=== PATIENT | male | born 1960 | race American Indian/Alaskan Native ===

== ENCOUNTER 2020-02-03 04:35 | Emergency (ER) | payer MEDICARE, MEDICAID ==
[2020-02-03 04:48] VITALS: BP 148/87; PULSE 77
--- NOTE | 2020-02-03 05:16 | EDM.PDOC ---
ED HPI GENERAL MEDICAL PROBLEM - General Chief Complaint: Lower Extremity Injury/Pain Stated Complaint: LEFT HIP PAIN Time Seen by Provider: 02/03/20 04:45 Source of Information: Reports: Patient, Retirement Records History Limitations: Reports: Altered Mental Status - History of Present Illness INITIAL COMMENTS - FREE TEXT/NARRATIVE: Pt presents with left hip pain Pt per NH has fallen 5 days in a row and [facility] sent for hip evaluation Onset: Gradual Duration: Day(s): Location: Reports: Lower Extremity, Left Quality: Reports: Ache - Related Data Allergies Allergy/AdvReac Type Severity Reaction Status Date / Time propoxyphene Allergy Burning Verified 02/03/20 04:46 [From Darvocet-N] simvastatin Allergy Other Verified 02/03/20 04:46 Home Meds: Home Meds Albuterol [Proventil HFA] 6.7 gm INH ASDIRECTED 10/21/16 [History] Albuterol/Ipratropium [DuoNeb 3.0-0.5 MG/3 ML] 3 ml NEB ASDIRECTED 10/21/16 [History] Carisoprodol [Soma] 350 mg PO TID 10/21/16 [History] Fluticasone Propionate 1 spray NS DAILY 10/21/16 [History] LORazepam [Ativan] 1 mg PO TID PRN 10/21/16 [History] Multivitamin [One Daily] 1 each PO DAILY 10/21/16 [History] Pantoprazole Sodium 40 mg PO BID 10/21/16 [History] Topiramate 100 mg PO DAILY 10/21/16 [History] traMADol HCl [Tramadol HCl] 100 mg PO Q6H PRN 10/21/16 [History] Cholecalciferol (Vitamin D3) [Vitamin D3] 1,000 unit PO DAILY 06/11/18 [History] Krill Oil 500 mg PO DAILY 06/11/18 [History] Milk Thistle Seed Extract [Milk Thistle] 200 mg PO DAILY 06/11/18 [History] Pregabalin [Lyrica] 150 mg PO BID 06/11/18 [History] dilTIAZem HCL [Diltiazem 24Hr ER] 180 mg PO DAILY 06/11/18 [History] Vitamin E 400 unit PO DAILY 11/08/18 [History] Diclofenac Sodium [Voltaren 1% Gel] 1 applic TOP QID PRN 11/10/18 [History] lisinopriL [Lisinopril] 5 mg PO DAILY #30 tablet 11/13/18 [Rx] Bumetanide 2 mg PO DAILY 05/11/19 [History] Butalb/Acetaminophen/Caffeine [Unfeyx-Zxpdnhch-Djqy 50-325-40] 1 tab PO QID PRN 05/11/19 [History] Rivaroxaban [Xarelto] 20 mg PO WITHDINNER 05/11/19 [History] Metoprolol Succinate 200 mg PO DAILY 30 Days #60 tab.er.24h 05/12/19 [Rx] Past Medical History HEENT History: Reports: Cataract, Hard of Hearing, Other (See Below) Cardiovascular History: Reports: Afib, High Cholesterol, Hypertension Respiratory History: Reports: Asthma, COPD, Pneumonia, Recurrent, Other (See Below) Other Respiratory History: emphysema Gastrointestinal History: Reports: Chronic Diarrhea, GERD Genitourinary History: Reports: None Musculoskeletal History: Reports: Back Pain, Chronic, Neck Pain, Chronic Neurological History: Reports: Concussion, Migraines Other Neuro History: Numerous EEG's Psychiatric History: Reports: Bipolar, Depression, Emotional Problems, Psych Hospitalization(s), Psychosis, Schizophrenia, Suicide Attempt, Suicidal Ideation Endocrine/Metabolic History: Reports: Other (See Below) Other Endocrine/Metabolic History: was pre diabetic Hematologic History: Reports: Hemochromatosis Other Hematologic History: Poorly Controlled - Infectious Disease History Infectious Disease History: Reports: None Other Infectious Disease History: unable to verify - Past Surgical History HEENT Surgical History: Reports: Cataract Surgery Other HEENT Surgeries/Procedures: august 2012- cataract right eye. september 2012- left eye surgery GI Surgical History: Reports: Cholecystectomy, Colonoscopy, EGD Other GI Surgeries/Procedures: Colonoscopy - 2012. EGD - 2012 Neurological Surgical History: Reports: None Social & Family History - Family History Family Medical History: Noncontributory - Caffeine Use Caffeine Use: Reports: None Caffeine Use Comment: unable to verify Review of Systems - Review of Systems Review Of Systems: See Below Musculoskeletal: Reports: Joint Pain ED EXAM, GENERAL - Physical Exam Exam: See Below Exam Limited By: Altered Mental Status General Appearance: No Apparent Distress Extremities: Other (Left hip mildly tender No rotation No shortening) Course - Vital Signs Last Recorded V/S: Last Vital Signs Temp 98.2 F 02/03/20 04:46 Pulse 77 02/03/20 04:46 Resp 14 02/03/20 04:46 BP 148/87 H 02/03/20 04:46 Pulse Ox 99 02/03/20 04:46 - Orders/Labs/Meds Orders: Active Orders 24 hr Category Date Time Status Hip Min 1V Lt [CR] Stat Exams 02/03/20 04:45 Ordered - Re-Assessments/Exams Free Text/Narrative Re-Assessment/Exam: 02/03/20 05:14 Xray: No obvious fracture Departure - Departure Time of Disposition: 05:15 Disposition: DC/Tfer to SNF 03 Clinical Impression: Left hip pain - Discharge Information *PRESCRIPTION DRUG MONITORING PROGRAM REVIEWED*: Not Applicable *COPY OF PRESCRIPTION DRUG MONITORING REPORT IN PATIENT COLLIN: Not Applicable Instructions: Hip Pain Additional Instructions: Follow up in clinic Sepsis Event Note (ED) - Evaluation Sepsis Screening Result: No Definite Risk - Focused Exam Vital Signs: Vital Signs Temp Pulse Resp BP Pulse Ox 02/03/20 04:46 98.2 F 77 14 148/87 H 99 - My Orders Last 24 Hours: My Active Orders 02/03/20 04:45 Hip Min 1V Lt [CR] Stat - Assessment/Plan Last 24 Hours: My Active Orders 02/03/20 04:45 Hip Min 1V Lt [CR] Stat
== END 2020-02-03 08:25 ==
LOC: LL.ED 04:35
DX: M25.552 Pain in left hip (principal); R41.82 Altered mental status, unspecified; I10 Essential (primary) hypertension; E78.00 Pure hypercholesterolemia, unspecified; I48.91 Unspecified atrial fibrillation; J44.9 Chronic obstructive pulmonary disease, unspecified; K21.9 Gastro-esophageal reflux disease without esophagitis; F31.9 Bipolar disorder, unspecified; Z88.5 Allergy status to narcotic agent; Z88.8 Allergy status to other drugs, medicaments and biological substances; Z90.49 Acquired absence of other specified parts of digestive tract; Z79.899 Other long term (current) drug therapy
CPT/HCPCS: 99282; 99283-25

== ENCOUNTER 2020-02-06 09:10 | Observation (INO) | payer MEDICARE, MEDICAID ==
[2020-02-06] MEDS ORDERED: Famotidine 20 MG/2 ML SDV IVPUSH ONE (09:19)
--- NOTE | 2020-02-06 09:19 | EDM.PDOC ---
ED HPI GENERAL MEDICAL PROBLEM - General Chief Complaint: Behavioral/Psych Stated Complaint: behavioral issue Time Seen by Provider: 02/06/20 09:18 Source of Information: Reports: Patient, Halfway Records, Old Records ([facility] EMR. No paper hospital chart available.) History Limitations: Reports: Altered Mental Status - History of Present Illness INITIAL COMMENTS - FREE TEXT/NARRATIVE: The patient was brought to the emergency room via ambulance with full stack python developer accompaniment with saline lock placed but no other treatment prior to arrival. He is a very poor historian secondary to his current psychiatric status. The patient complained of some nonspecific left chest pain earlier this morning with one sublingual nitroglycerin tablet given at the halfway prior to patient's transfer. Chest pain symptoms have completely resolved at time of arrival to this facility. The patient apparently complained of multiple other problems and wanted to be seen in the emergency room, however specifics unclear at this time secondary to his mental status. No apparent recent history of fever, cough, abdominal complaints, UTI symptoms, etc.. No current pain at this time. His mental and neurological status is apparently stable by limited history. Onset: Today, Unknown/Unsure Onset Date: 02/06/20 Onset Time: 08:00 Duration: Resolved Prior to Arrival Location: Reports: Chest Quality: Reports: Same as Previous Episode Severity: Moderate Improves with: Reports: Medication Worsens with: Reports: None Context: Reports: Other (As above). Denies: Sick Contact, Trauma Associated Symptoms: Reports: Confusion (Stable by history), Chest Pain. Denies: Cough, Fever/Chills, Nausea/Vomiting, Shortness of Breath Treatments MANAGER EXPORT: Reports: IV/IO, Nitroglycerin - Related Data Allergies Allergy/AdvReac Type Severity Reaction Status Date / Time propoxyphene Allergy Burning Verified 02/03/20 04:46 [From Darvocet-N] simvastatin Allergy Other Verified 02/03/20 04:46 Home Meds: Home Meds LORazepam [Ativan] 0.5 mg PO BID@10/21/16 [History] Pantoprazole Sodium 40 mg PO DAILY 10/21/16 [History] Acetaminophen [Tylenol] 325 mg PO Q4HR PRN 02/06/20 [History] Albuterol Sulfate 2.5 mg IH Q4HR PRN 02/06/20 [History] Albuterol Sulfate [Albuterol Sulfate Hfa] 2 puff INH Q4HR PRN 02/06/20 [History] Albuterol/Ipratropium [Combivent Respimat] 1 puff IH QID 02/06/20 [History] Aspirin 325 mg PO DAILY 02/06/20 [History] Celecoxib 200 mg PO DAILY 02/06/20 [History] Fluticasone/Vilanterol [Breo Ellipta 200-25 MCG Inhalation Kit] 1 each IH DAILY 02/06/20 [History] Folic Acid 1 mg PO DAILY 02/06/20 [History] Hydrocortisone [Hydrocortisone 1% Crm] 1 applic TOP QID PRN 02/06/20 [History] Metoprolol Tartrate [Lopressor] 50 mg PO BID 02/06/20 [History] Mirtazapine [Remeron] 7.5 mg PO BEDTIME 02/06/20 [History] Mometasone Furoate [Asmanex Hfa] 1 puff IH BEDTIME 02/06/20 [History] Multivit,Calc,Mins/Iron/Folic [Thera-M] 1 each PO DAILY 02/06/20 [History] Nicotine [Nicotine Patch] 21 mg TD BEDTIME 02/06/20 [History] Rosuvastatin Calcium [Crestor] 40 mg PO DAILY 02/06/20 [History] Sennosides/Docusate Sodium [Senokot-S Tablet] 1 each PO BID 02/06/20 [History] Tiotropium [Spiriva] 18 mcg INH DAILY 02/06/20 [History] Warfarin [Coumadin] 2.5 mg PO MOWEFR@1400 02/06/20 [History] Warfarin [Coumadin] 5 mg PO SUTHSA@1400 02/06/20 [History] dilTIAZem HCL [Cardizem Cd] 240 mg PO DAILY 02/06/20 [History] diphenhydrAMINE HCL [Benadryl Allergy] 25 mg PO Q6HR PRN 02/06/20 [History] levETIRAcetam [Keppra] 250 mg PO Q12HR 02/06/20 [History] lisinopriL [Lisinopril] 20 mg PO DAILY 02/06/20 [History] ziprasidone HCL [Geodon] 40 mg PO DAILY 02/06/20 [History] Past Medical History HEENT History: Reports: Allergic Rhinitis, Cataract, Hard of Hearing, Other (See Below) Cardiovascular History: Reports: Afib, Arrhythmia, Cardiomyopathy, Heart Failure, Heart Murmur, High Cholesterol, Hypertension, Pulmonary Hypertension, Other (See Below). Denies: Blood Clots/VTE/DVT, CAD, MO Other Cardiovascular History: History of mild diffuse valvular disease by echocardiogram however not problematic. Severe left atrial enlargement with moderate right atrial enlargement with additional mild right ventricular enlargement consistent with pulmonary hypertension. Chronic atrial fibrillation with current anticoagulation therapy and previous history of rapid ventricular response and PACs. Left superficial femoral vein thrombosis at the gastrocnemius region on 11/24/2018 with no history of DVTs. Respiratory History: Reports: Asthma, Bronchitis, Recurrent, COPD, Pneumonia, Recurrent, Other (See Below) Gastrointestinal History: Reports: Cholelithiasis, Chronic Diarrhea, Gastritis, GERD, GI Bleed, PUD, Other (See Below) Other Gastrointestinal History: Upper GI bleed on 05/31/2018. History of nodular liver and probable hepatic hypertension by CT scan on 06/11/18. Genitourinary History: Reports: BPH, Hydronephrosis, Renal Calculus, Other (See Below) Other Genitourinary History: Left-sided urolithiasis with hydronephrosis on 06/11/2018. Musculoskeletal History: Reports: Arthritis, Back Pain, Chronic, Fracture, Neck Pain, Chronic, Osteoarthritis, Other (See Below) Other Musculoskeletal History: Chronic pain disorder with narcotic use. Left- sided rib fractures by x-rays. 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 Psychiatric History: Reports: Addiction, Bipolar, Depression, Emotional Problems, Psych Hospitalization(s), Psychosis, Schizophrenia, Suicide Attempt, Suicidal Ideation, Other (See Below) Other Psychiatric History: History of alcohol abuse, marijuana and methamphetamine abuse by medical records with additional previous DWIs and hospitalizations required for treatment of his substance abuse, anxiety depression disorder, etc.. Paranoid schizophrenia with additional bipolar disorder. Endocrine/Metabolic History: Reports: Diabetes, Type II, Other (See Below) Other Endocrine/Metabolic History: Pre diabetic? Hematologic History: Reports: Hemochromatosis, Other (See Below) Other Hematologic History: Macrocytosis. Hemochromatosispoorly Controlled Dermatologic History: Reports: Venous Stasis Dermatitis - Infectious Disease History Infectious Disease History: Reports: Chicken Pox, Measles Other Infectious Disease History: unable to verify - Past Surgical History HEENT Surgical History: Reports: Cataract Surgery, Oral Surgery Other HEENT Surgeries/Procedures: August 2012- cataract right eye; September 2012- left eye surgery. Teeth extractions. GI Surgical History: Reports: Cholecystectomy, Colonoscopy, EGD Other GI Surgeries/Procedures: Colonoscopy - 2012. EGD - 2012 Neurological Surgical History: Reports: None - Past Imaging History Past Imaging History: Reports: Cardiac Echo (Last echocardiogram on 05/10/2019 with ejection fraction of 40 to 45% at that time and otherwise findings as above. Previous echocardiogram on 11/08/2018.), CAT Scan (CT scan of the abdomen pelvis on 06/11/2018. CT scan of the head on 12/21/2019 and 05/10/2019.), EEG (Multiple previous per medical records), Venous Doppler (Of the legs bilaterally on 11/24/2018 with findings as above. Right leg venous Doppler study on 08/07/2018.) Social & Family History - Family History Family Medical History: Unobtainable - Caffeine Use Caffeine Use: Reports: None Caffeine Use Comment: unable to verify - Alcohol Use Alcohol Use History: Yes Number of Drinks Per Day Comment: Alcohol abuse history as above. - Recreational Drug Use Recreational Drug Use: Yes Drug Use in Last 12 Months: Yes Recreational Drug Type: Reports: Amphetamines (Speed), Marijuana/Hashish, Methamphetamine - Living Situation & Occupation Living situation: Reports: Extended Care Facility ([facility]) ED ROS GENERAL - Review of Systems Review Of Systems: Comprehensive ROS is negative, except as noted in HPI. ED EXAM, GENERAL - Physical Exam Exam: See Below Exam Limited By: No Limitations General Appearance: Alert, WD/WN, No Apparent Distress Eye Exam: Bilateral Eye: EOMI, Normal Fundi, Normal Inspection (No nystagmus), PERRL Ears: Normal Canal, Normal TMs, Hearing Loss (Mild bilateral) Nose: Normal Inspection, Normal Mucosa, No Blood Throat/Mouth: Normal Inspection, Normal Lips, Normal Teeth, Normal Gums, Normal Oropharynx, Normal Voice, No Airway Compromise. No: Dysphagia, Perioral Cyanosis Head: Atraumatic, Normocephalic. No: Facial Swelling, Facial Tenderness, Sinus Tenderness Neck: Normal Inspection, Supple, Non-Tender, Full Range of Motion. No: Carotid Bruit, Lymphadenopathy (L), Thyromegaly Respiratory/Chest: No Respiratory Distress, Normal Breath Sounds, No Accessory Muscle Use, Chest Non-Tender, Rhonchi (Occasional mild bilateral). No: Rales, Wheezing, Pleural Rub, Retractions Cardiovascular: Normal Peripheral Pulses, No Gallop, No JVD, No Murmur, No Rub, Irregularly Irregular (Regular rate). No: No Edema (Dependent edema as below), Gallop/S3, Gallop/S4 Peripheral Pulses: 2+: Radial (L), Radial (R), Dorsalis Pedis (L), Dorsalis Pedis (R) GI/Abdominal: Normal Bowel Sounds, Soft, Non-Tender, No Organomegaly, No Distention, No Abnormal Bruit, No Mass, Pelvis Stable, Other (Obese). No: Guarding (Male) Exam: Deferred Rectal (Males) Exam: Deferred Back Exam: Normal Inspection, Full Range of Motion. No: CVA Tenderness (L), CVA Tenderness (R), Muscle Spasm Extremities: Non-Tender, Normal Capillary Refill, Pedal Edema (Bilateral trace+1 pedal/pretibial edema), Limited Range of Motion (Secondary to hemiparesis as below). No: Poonam's Sign Neurological: Alert, Normal Reflexes (Negative Babinski's), Confused (Mild), Other (Stable by history of left hemiparesis) Psychiatric: Anxious (Moderate), Depressed Mood (Moderate), Other (Psychosis?) Skin Exam: Ecchymosis (Multiple on the extremities and abdomen), Other (Venous versus dermatitis of the lower extremities). No: Diaphoretic, Petechiae, Wound/Incision Lymphatic: No Adenopathy EKG INTERPRETATION EKG Date: 02/06/20 Time: 09:19 Rhythm: A-Fib Rate (Beats/Min): 75 Palm: Normal (Left cardiac axis which is changed from previous neutral cardiac axis.) P-Wave: Variable QRS: Wide (0.10 seconds representing repolarization changes) ST-T: Normal QT: Normal IN/PQ Interval: Variable. Poor R wave progression in the anterior leads with resolution of previous pulmonary hypertension by EKG Comparison: Change From Previous EKG (As above since 12/21/2019) EKG Interpretation Comments: 1. No acute ischemic changes 2. Atrial fibrillation 3. Repolarization changes Course - Vital Signs Last Recorded V/S: Last Vital Signs Temp 36.2 C 02/06/20 09:30 Pulse 70 02/06/20 10:50 Resp 18 02/06/20 10:50 BP 126/85 02/06/20 10:50 Pulse Ox 99 02/06/20 10:50 Vital Signs - 24 hr 02/06/20 02/06/20 02/06/20 09:10 09:30 09:43 Temperature [ 36.2 C Temporal] Pulse, 80 73 76 Peripheral [ Pulse Oximetry] Respiratory 18 17 20 Rate Blood Pressure 146/85 H 146/85 H 129/99 H [Left Upper Arm ] O2 Sat by Pulse 99 99 99 Oximetry 02/06/20 02/06/20 10:00 10:50 Temperature [ Temporal] Pulse, 81 70 Peripheral [ Pulse Oximetry] Respiratory 17 18 Rate Blood Pressure 128/97 H 126/85 [Left Upper Arm ] O2 Sat by Pulse 99 99 Oximetry - Orders/Labs/Meds Orders: Active Orders 24 hr Category Date Time Status Cardiac Monitoring [RC] . DIRECTED Care 02/06/20 09:19 Active EKG Documentation Completion [RC] ASDIRECTED Care 02/06/20 09:19 Active Oxygen Therapy, ED [RC] PRN Care 02/06/20 09:19 Active Peripheral IV Care [RC] . DIRECTED Care 02/06/20 09:19 Active Pulse Oximetry [RC] CONTINUOUS Care 02/06/20 09:19 Active Up With Assistance [RC] PFP Care 02/06/20 09:19 Active Vital Signs [RC] PFP Care 02/06/20 09:19 Active Nothing per Oral Now Diet [DIET] Diet 02/06/20 Breakfast Active Chest 1V Frontal [CR] Stat Exams 02/06/20 09:19 Taken Sodium Chloride 0.9% [Saline Flush] Med 02/06/20 09:19 Active 10 ml FLUSH ASDIRECTED PRN Obtain Past Medical Record [OM.PC] Urgent Oth 02/06/20 09:19 Active Peripheral IV Insertion Adult [OM.PC] Stat Oth 02/06/20 09:19 Ordered Resuscitation Status Stat Resus Stat 02/06/20 09:19 Ordered Medication Orders Sodium Chloride (Saline Flush) 10 ml FLUSH ASDIRECTED PRN PRN Reason: Keep Vein Open Last Admin: 02/06/20 09:26 Dose: 10 ml Documented by: KADE Labs: Laboratory Tests 02/06/20 02/06/20 02/06/20 Range/Units 09:15 09:15 09:15 WBC 10.8 H (4.0-10.2) K/uL RBC 3.94 L (4.33-5.41) M/uL Hgb 12.7 L (13.1-16.8) g/dL Hct 37.8 L (39.0-49.0) % MCV 95.9 (84.0-98.0) fL MCH 32.2 (28.2-33.3) pg MCHC 33.6 (31.7-36.0) g/dL RDW 17.3 H (11.2-14.1) % Plt Count 241 (150-350) K/uL Neut % (Auto) 68.3 (45.0-80.0) % Lymph % (Auto) 15.0 (10.0-50.0) % [place] % (Auto) 11.0 (2.0-14.0) % Eos % (Auto) 5.2 H (0.0-5.0) % Baso % (Auto) 0.5 (0.0-2.0) % Neut # (Auto) 7.37 H (1.40-7.00) K/uL Lymph # (Auto) 1.62 (0.50-3.50) K/uL [place] # (Auto) 1.19 H (0.00-1.00) K/uL Eos # (Auto) 0.56 H (0.00-0.50) K/uL Baso # (Auto) 0.05 (0.00-0.20) K/uL PT 26.1 H (9.5-12.0) SEC INR 2.7 APTT 34.8 H (24.5-32.8) SEC D-Dimer, Quantitative 145 (0-400) ng/mL Sodium (136-145) mmol/L Potassium (3.5-5.1) mmol/L Chloride (98-107) mmol/L Carbon Dioxide (21.0-32.0) mmol/L BUN (7-18) mg/dL Creatinine (0.51-1.17) mg/dL Est Cr Clr Drug Dosing Estimated GFR (MDRD) mL/min Glucose (74-106) mg/dL Lactic Acid (0.4-2.0) mmol/L Uric Acid (2.6-7.2) mg/dL Calcium (8.5-10.1) mg/dL Magnesium (1.8-2.4) mg/dL Total Bilirubin (0.2-1.0) mg/dL AST (15-37) U/L ALT (12-78) U/L Alkaline Phosphatase (46-116) IU/L Creatine Kinase (26-308) U/L Creatine Kinase Index (0.0-2.5) % CK-MB (CK-2) (0.00-3.60) ng/mL Troponin I (0.000-0.056) ng/mL NT-Pro-B Natriuret Pep (0-125) pg/mL Total Protein (6.4-8.2) g/dL Albumin (3.4-5.0) g/dL TSH, Ultra Sensitive (0.358-3.740) mIU/mL 02/06/20 02/06/20 Range/Units 09:15 09:15 WBC (4.0-10.2) K/uL RBC (4.33-5.41) M/uL Hgb (13.1-16.8) g/dL Hct (39.0-49.0) % MCV (84.0-98.0) fL MCH (28.2-33.3) pg MCHC (31.7-36.0) g/dL RDW (11.2-14.1) % Plt Count (150-350) K/uL Neut % (Auto) (45.0-80.0) % Lymph % (Auto) (10.0-50.0) % [place] % (Auto) (2.0-14.0) % Eos % (Auto) (0.0-5.0) % Baso % (Auto) (0.0-2.0) % Neut # (Auto) (1.40-7.00) K/uL Lymph # (Auto) (0.50-3.50) K/uL [place] # (Auto) (0.00-1.00) K/uL Eos # (Auto) (0.00-0.50) K/uL Baso # (Auto) (0.00-0.20) K/uL PT (9.5-12.0) SEC INR APTT (24.5-32.8) SEC D-Dimer, Quantitative (0-400) ng/mL Sodium 139 (136-145) mmol/L Potassium 4.0 (3.5-5.1) mmol/L Chloride 106 (98-107) mmol/L Carbon Dioxide 23.2 (21.0-32.0) mmol/L BUN 23 H (7-18) mg/dL Creatinine 0.59 (0.51-1.17) mg/dL Est Cr Clr Drug Dosing TNP Estimated GFR (MDRD) > 60 mL/min Glucose 302 H (74-106) mg/dL Lactic Acid 1.4 (0.4-2.0) mmol/L Uric Acid 2.9 (2.6-7.2) mg/dL Calcium 8.4 L (8.5-10.1) mg/dL Magnesium 1.5 L (1.8-2.4) mg/dL Total Bilirubin 0.4 (0.2-1.0) mg/dL AST 33 (15-37) U/L ALT 52 (12-78) U/L Alkaline Phosphatase 124 H (46-116) IU/L Creatine Kinase 39 (26-308) U/L Creatine Kinase Index 1.5 (0.0-2.5) % CK-MB (CK-2) 0.60 (0.00-3.60) ng/mL Troponin I 0.011 (0.000-0.056) ng/mL NT-Pro-B Natriuret Pep 267 H (0-125) pg/mL Total Protein 6.3 L (6.4-8.2) g/dL Albumin 2.6 L (3.4-5.0) g/dL TSH, Ultra Sensitive 1.757 (0.358-3.740) mIU/mL Meds: Medications Generic Name Dose Route Start Last Admin Trade Name Freq PRN Reason Stop Dose Admin Sodium Chloride 10 ml 02/06/20 09:19 02/06/20 09:26 Saline Flush FLUSH 10 ml ASDIRECTED PRN Administration Keep Vein Open Discontinued Medications Generic Name Dose Route Start Last Admin Trade Name Sandoval PRN Reason Stop Dose Admin Famotidine 40 mg 02/06/20 09:19 02/06/20 09:25 Pepcid IVPUSH 02/06/20 09:20 40 mg ONETIME ONE Administration - Radiology Interpretation Free Text/Narrative:: laboratory monitor showed atrial fibrillation with average heart rate in the 60s to 70s with no ectopy or arrhythmia. Chest x-ray, portable, shows evidence of mild to moderate cardiomegaly with mild prominence of the proximal aortic arch. Moderate COPD changes with probable pulmonary hypertension and/or mild centralized CHF. Multiple left-sided old lateral rib fractures also present with no pneumothorax, pulmonary infiltrates, etc. Mildly increased diffuse nonspecific bowel gaseous pattern by limited view. Departure - Departure Time of Disposition: 12:10 Disposition: Refer to Observation Condition: Good Clinical Impression: CHF, Congestive heart failure, Hypomagnesemia, Hypocalcemia, Hypoalbuminemia, Peptic reflux disease, Mixed anxiety depressive disorder, COPD (chronic obstructive pulmonary disease) Atrial fibrillation Qualifiers: Atrial fibrillation type: longstanding persistent Qualified Code(s): I48.11 - Longstanding persistent atrial fibrillation Chest pain Qualifiers: Chest pain type: precordial pain Qualified Code(s): R07.2 - Precordial pain Anemia Qualifiers: Anemia type: unspecified type Qualified Code(s): D64.9 - Anemia, unspecified Osteoarthritis Qualifiers: Osteoarthritis location: multiple joints Osteoarthritis type: primary Qualified Code(s): M89.49 - Other hypertrophic osteoarthropathy, multiple sites Referrals: Jennifer Dee PA-C [Primary Care Provider] - Forms: ED Department Discharge Care Plan Goals: See plan Sepsis Event Note (ED) - Focused Exam Vital Signs: Vital Signs Temp Pulse Resp BP Pulse Ox 02/06/20 10:50 70 18 126/85 99 02/06/20 10:00 81 17 128/97 H 99 02/06/20 09:43 76 20 129/99 H 99 02/06/20 09:30 36.2 C 73 17 146/85 H 99 02/06/20 09:10 80 18 146/85 H 99 - Problem List & Annotations (1) Chest pain SNOMED Code(s): 29055536 Code(s): R07.9 - CHEST PAIN, UNSPECIFIED Status: Acute Priority: High Current Visit: Yes Onset Date: 02/06/20 Annotation/Comment:: Chest pain protocol initiated upon patient's arrival to the emergency room, however Brilinta and aspirin were not given secondary to patient's current Coumadin therapy. Note therapeutic INR as above. Patient is an extremely poor historian and will be placed in observation status with initiation of standard rule out MO orders. Note to mild CHF with recent echocardiogram on 05/10/2019. Patient is a full code with only recent halfway placement. Cardiology consultation depending on his clinical course. Qualifiers: Chest pain type: precordial pain Qualified Code(s): R07.2 - Precordial pain (2) Anemia SNOMED Code(s): 388699661 Code(s): D64.9 - ANEMIA, UNSPECIFIED Status: Acute Priority: Medium Current Visit: Yes Onset Date: 02/06/20 Annotation/Comment:: No evidence of acute GI bleed. High-dose IV Pepcid given as GI prophylaxis. Anemia work-up with morning blood work on 02/06. Qualifiers: Anemia type: unspecified type Qualified Code(s): D64.9 - Anemia, unspecified (3) Atrial fibrillation SNOMED Code(s): 77927485 Code(s): I48.91 - UNSPECIFIED ATRIAL FIBRILLATION Status: Chronic Priority: Medium Current Visit: Yes Annotation/Comment:: Stable by history with therapeutic INR today. Qualifiers: Atrial fibrillation type: longstanding persistent Qualified Code(s): I48.11 - Longstanding persistent atrial fibrillation (4) CHF, Congestive heart failure SNOMED Code(s): 66326901 Code(s): I50.9 - HEART FAILURE, UNSPECIFIED Status: Chronic Priority: M edium Current Visit: Yes Annotation/Comment:: Chronic with recent echocardiogram as above. Observe for now with medication adjustment during this hospitalization. (5) Hypoalbuminemia SNOMED Code(s): 601674940 Code(s): E88.09 - OTH DISORDERS OF PLASMA-PROTEIN METABOLISM, NEC Status: Acute Priority: Medium Current Visit: Yes Onset Date: 02/06/20 Annota tion/Comment:: Observe for now. (6) Osteoarthritis SNOMED Code(s): 934141602 Code(s): M19.90 - UNSPECIFIED OSTEOARTHRITIS, UNSPECIFIED SITE Status: Chronic Priority: Medium Current Visit: Yes Annotation/Comment:: Stable by history Qualifiers: Osteoarthritis location: multiple joints Osteoarthritis type: primary Qualified Code(s): M89.49 - Other hypertrophic osteoarthropathy, multiple sites (7) Peptic reflux disease SNOMED Code(s): 491621307 Code(s): K21.9 - GASTRO-ESOPHAGEAL REFLUX DISEASE WITHOUT ESOPHAGITIS Status: Chronic Priority: Medium Current Visit: Yes Annotation/Comment:: As above (8) Hypocalcemia SNOMED Code(s): 2460383 Code(s): E83.51 - HYPOCALCEMIA Status: Acute Priority: Medium Current Visit: Yes Onset Date: 02/06/20 Annotation/Comment:: Observe for now. (9) Hypomagnesemia SNOMED Code(s): 243490362 Code(s): E83.42 - HYPOMAGNESEMIA Status: Acute Priority: Medium Current Visit: Yes Onset Date: 02/06/20 Annotation/Comment:: Magnesium supplementation during this hospitalization. (10) Mixed anxiety depressive disorder SNOMED Code(s): 109461846 Code(s): F41.8 - OTHER SPECIFIED ANXIETY DISORDERS Status: Chronic Priority: Medium Current Visit: Yes Annotation/Comment:: Note significant paranoid schizophrenia. Stable by history. In addition, note history of substance abuse as above. (11) COPD (chronic obstructive pulmonary disease) SNOMED Code(s): 38933282 Code(s): J44.9 - CHRONIC OBSTRUCTIVE PULMONARY DISEASE, UNSPECIFIED Status: Chronic Priority: Medium Current Visit: Yes Annotation/Comment:: No recent fever or bronchitic type symptoms. Borderline leukocytosis likely secondary to stress reaction. Observe for now. Qualifiers: COPD type: emphysema Emphysema type: panlobular Qualified Code(s): J43.1 - Panlobular emphysema - Problem List Review Problem List Initiated/Reviewed/Updated: Yes - My Orders Last 24 Hours: My Active Orders 02/06/20 Breakfast Nothing per Oral Now Diet [DIET] 02/06/20 09:19 Cardiac Monitoring [RC] . DIRECTED EKG Documentation Completion [RC] ASDIRECTED Oxygen Therapy, ED [RC] PRN Peripheral IV Care [RC] . DIRECTED Pulse Oximetry [RC] CONTINUOUS Up With Assistance [RC] PFP Vital Signs [RC] PFP Chest 1V Frontal [CR] Stat Sodium Chloride 0.9% [Saline Flush] 10 ml FLUSH ASDIRECTED PRN Obtain Past Medical Record [OM.PC] Urgent Peripheral IV Insertion Adult [OM.PC] Stat Resuscitation Status Stat - Assessment/Plan Admission H&P: Please use this note as an admission H&P Last 24 Hours: My Active Orders 02/06/20 Breakfast Nothing per Oral Now Diet [DIET] 02/06/20 09:19 Cardiac Monitoring [RC] . DIRECTED EKG Documentation Completion [RC] ASDIRECTED Oxygen Therapy, ED [RC] PRN Peripheral IV Care [RC] . DIRECTED Pulse Oximetry [RC] CONTINUOUS Up With Assistance [RC] PFP Vital Signs [RC] PFP Chest 1V Frontal [CR] Stat Sodium Chloride 0.9% [Saline Flush] 10 ml FLUSH ASDIRECTED PRN Obtain Past Medical Record [OM.PC] Urgent Peripheral IV Insertion Adult [OM.PC] Stat Resuscitation Status Stat Assessment:: As above Plan: As above. Extensive precautions were given to the patient, who is in agreement with the treatment plan. The patient's condition is stable enough for observation status and general supervision.
[2020-02-06] MEDS: Sodium Chloride 0.9% 10 ML Syringe FLUSH PRN ×2 (09:26→14:31)
[2020-02-06 09:42] LABS: PTT,PARTIAL THROMBOPLSTIN TIME 34.8 SEC (24.5-32.8)
[2020-02-06 10:06] LABS: CHLORIDE,CL 106 mmol/L (98-107); SODIUM,NA 139 mmol/L (136-145)
[2020-02-06] MEDS ORDERED: Sodium Chloride 0.9% 10 ML Syringe FLUSH PRN (13:04)
[2020-02-06] MEDS ORDERED: Temazepam 15 MG Cap PO PRN (13:04)
[2020-02-06] MEDS ORDERED: Acetaminophen 325 MG Tab PO PRN (13:04)
[2020-02-06] MEDS ORDERED: Enoxaparin 60 MG/0.6 ML Syringe SUBCUT SCH (13:15)
[2020-02-06] MEDS: Furosemide 40 MG/4 ML VIAL IVPUSH SCH ×2 (14:31→21:30)
[2020-02-06] MEDS: Albuterol/Ipratropium 4 GM Inhalation Spray INH SCH ×2 (15:53→21:26)
[2020-02-06] MEDS: Pantoprazole 40 MG Vial IVPUSH SCH (17:33)
[2020-02-06] MEDS: Potassium Chloride 20 MEQ Tab.ER PO SCH (17:33)
[2020-02-06] MEDS: Metoprolol Tartrate 50 MG Tab PO SCH (17:34)
[2020-02-06] MEDS ORDERED: Warfarin 2.5 MG Tab PO SCH (18:00)
[2020-02-06] MEDS ORDERED: Mometasone Furoate HFA 200 mcg/Puff 13 GM Inhaler INH SCH (20:00)
[2020-02-06] MEDS ORDERED: Nicotine 21 MG/24 Hr Patch TOP SCH (20:00)
[2020-02-06] MEDS ORDERED: Mirtazapine 15 MG Tab PO SCH (20:00)
[2020-02-06] MEDS: LORazepam 0.5 MG Tab PO SCH (21:21)
[2020-02-06] MEDS: levETIRAcetam 250 MG Tab PO SCH (21:25)
[2020-02-07] MEDS ORDERED: LORazepam 0.5 MG Tab PO ONE (00:02)
[2020-02-07] MEDS ORDERED: Ibuprofen 600 MG Tab PO ONE (00:05)
[2020-02-07] MEDS: Albuterol 8 GM Inhaler INH PRN ×2 (01:15→06:49)
[2020-02-07] MEDS: Pantoprazole 40 MG Vial IVPUSH SCH (05:51)
[2020-02-07] MEDS: Furosemide 40 MG/4 ML VIAL IVPUSH SCH ×2 (05:51→15:13)
[2020-02-07] MEDS: Sodium Chloride 0.9% 10 ML Syringe FLUSH PRN (05:52)
[2020-02-07] MEDS: Albuterol/Ipratropium 4 GM Inhalation Spray INH SCH ×2 (07:47→12:11)
[2020-02-07] MEDS: Tiotropium Inhaler 18 MCG Inhalation Powder Cap Kit of 5 INH SCH ×2 (07:47→08:03)
[2020-02-07] MEDS: Potassium Chloride 20 MEQ Tab.ER PO SCH ×2 (07:48→12:11)
[2020-02-07] MEDS: levETIRAcetam 250 MG Tab PO SCH (07:49)
[2020-02-07] MEDS: Metoprolol Tartrate 50 MG Tab PO SCH (07:51)
[2020-02-07] MEDS: LORazepam 0.5 MG Tab PO SCH (07:51)
[2020-02-07] MEDS ORDERED: Folic Acid 1 MG Tab PO SCH (08:00)
[2020-02-07] MEDS ORDERED: Diltiazem 120 MG Cap.CD PO SCH (08:00)
[2020-02-07] MEDS ORDERED: Lisinopril 20 MG Tab PO SCH (08:00)
[2020-02-07] MEDS ORDERED: FLUTICASONE INH SCH (08:00)
[2020-02-07] MEDS ORDERED: Rosuvastatin 10 MG Tab PO SCH (08:00)
[2020-02-07] MEDS ORDERED: Aspirin 325 MG Tab PO SCH (08:00)
[2020-02-07] MEDS ORDERED: ZIPRASIDONE HCL PO SCH (08:00)
[2020-02-07] MEDS ORDERED: VILANTEROL INH SCH (08:00)
[2020-02-07 09:23] LABS: HEMOGLOBIN A1C 6.5 % (4.3-5.7)
[2020-02-07 09:25] LABS: CHLORIDE,CL 103 mmol/L (98-107); SODIUM,NA 137 mmol/L (136-145)
--- NOTE | 2020-02-07 10:41 | PCM.DCSUM1 ---
Discharge Summary - Hospital Course HPI Initial Comments: See emergency room note/mention H&P Brief History: See emergency room note/admission H&P Diagnosis: Stroke: No Modified [place] Scale: Mod.Sev.Disability ;Unable to Walk/Attend Bodily Needs W/O Assistance Modified [place] Scale Score: 4 - Discharge Data Discharge Date: 02/07/20 Discharge Disposition: DC/Tfer to [facility] Condition: Fair - Referral to Home Health Primary Care Physician: Jennifer Dee PA-C - Discharge Diagnosis/Problem(s) (1) Chest pain SNOMED Code(s): 22791492 ICD Code: R07.9 - CHEST PAIN, UNSPECIFIED Status: Acute Priority: High Current Visit: Yes Onset Date: 02/06/20 Problem Details: Negative work-up for acute AK with today's EKG showing only mild nonspecific ST changes as below. Chest pain protocol initiated upon patient's arrival to the emergency room, however Brilinta and aspirin were not given secondary to patient's current Coumadin therapy. Note therapeutic INR as above. Patient is an extremely poor historian and will be placed in observation status with initiation of standard rule out AK orders. Note to mild CHF with recent echocardiogram on 05/10/2019 and improved BNP prior to discharge. No clinical evidence of significant CHF. Patient is a full code with only recent halfway placement. Cardiology consultation depending on his clinical course. Glycosylated hemoglobin overall good at 6.5%. Lipid panel normal although mild LFTs elevation possibly second shelly to previous alcohol use and/your fatty liver. Qualifiers: Chest pain type: precordial pain Qualified Code(s): R07.2 - Precordial pain (2) Anemia SNOMED Code(s): 339232244 ICD Code: D64.9 - ANEMIA, UNSPECIFIED Status: Acute Priority: Medium Current Visit: Yes Onset Date: 02/06/20 Problem Details: No evidence of acute GI bleed. High-dose IV Pepcid given as GI prophylaxis. Anemia work-up depending on his clinical course. Qualifiers: Anemia type: unspecified type Qualified Code(s): D64.9 - Anemia, unspecified (3) Atrial fibrillation SNOMED Code(s): 41665191 ICD Code: I48.91 - UNSPECIFIED ATRIAL FIBRILLATION Status: Chronic Priority: Medium Current Visit: Yes Problem Details: Stable by history with therapeutic INR on admission. Stable during this hospitalization with the patient throwing off his telemetry unit secondary to his psychiatric status. Occasional mild tachycardia in the low 100s by vitals with agitation as a component. Qualifiers: Atrial fibrillation type: longstanding persistent Qualified Code(s): I48.11 - Longstanding persistent atrial fibrillation (4) CHF, Congestive heart failure SNOMED Code(s): 23772922 ICD Code: I50.9 - HEART FAILURE, UNSPECIFIED Status: Chronic Priority: Medium Current Visit: Yes Problem Details: Chronic with recent echocardiogram as above. Overall good results with IV Lasix therapy during this hospitalization. Medication adjustment at discharge. Close follow-up by regular provider. Patient is already on lisinopril. Blood pressures have been stable although occasionally low. (5) Hypoalbuminemia SNOMED Code(s): 216780160 ICD Code: E88.09 - OTH DISORDERS OF PLASMA-PROTEIN METABOLISM, NEC Status: Acute Priority: Medium Current Visit: Yes Onset Date: 02/06/20 Problem Details: Observe for now. (6) Osteoarthritis SNOMED Code(s): 456760679 ICD Code: M19.90 - UNSPECIFIED OSTEOARTHRITIS, UNSPECIFIED SITE Status: Chronic Priority: Medium Current Visit: Yes Problem Details: Stable by history Qualifiers: Osteoarthritis location: multiple joints Osteoarthritis type: primary Qualified Code(s): M89.49 - Other hypertrophic osteoarthropathy, multiple sites (7) Peptic reflux disease SNOMED Code(s): 378139298 ICD Code: K21.9 - GASTRO-ESOPHAGEAL REFLUX DISEASE WITHOUT ESOPHAGITIS Status: Chronic Priority: Medium Current Visit: Yes Problem Details: As above (8) Hypocalcemia SNOMED Code(s): 4003608 ICD Code: E83.51 - HYPOCALCEMIA Status: Acute Priority: Medium Current Visit: Yes Onset Date: 02/06/20 Problem Details: Observe for now. (9) Hypomagnesemia SNOMED Code(s): 744084686 ICD Code: E83.42 - HYPOMAGNESEMIA Status: Acute Priority: Medium Current Visit: Yes Onset Date: 02/06/20 Problem Details: Magnesium supplementation given prior to discharge during this hospitalization with continuation of magnesium oxide supplementation thereafter. Close follow-up by regular provider as per discharge instructions. (10) Mixed anxiety depressive disorder SNOMED Code(s): 869948875 ICD Code: F41.8 - OTHER SPECIFIED ANXIETY DISORDERS Status: Chronic Priority: Medium Current Visit: Yes Problem Details: Note significant paranoid schizophrenia. Stable by history, although patient somewhat noncooperative during this hospitalization as above. Continue to observe c losely by his regular provider. In addition, note history of substance abuse as per emergency room note. (11) COPD (chronic obstructive pulmonary disease) SNOMED Code(s): 12720233 ICD Code: J44.9 - CHRONIC OBSTRUCTIVE PULMONARY DISEASE, UNSPECIFIED Status: Chronic Priority: Medium Current Visit: Yes Problem Details: No recent fever or bronchitic type symptoms. Borderline leukocytosis likely secondary to stress reaction stable at discharge with no indication for antibiotic therapy. Observe for now. Qualifiers: COPD type: emphysema Emphysema type: panlobular Qualified Code(s): J43.1 - Panlobular emphysema (12) Elevated LFTs SNOMED Code(s): 828784335, 194665494 ICD Code: R79.89 - OTHER SPECIFIED ABNORMAL FINDINGS OF BLOOD CHEMISTRY Status: Acute Priority: Medium Current Visit: Yes Onset Date: 02/07/20 Problem Details: As above. (13) Hyperlipidemia SNOMED Code(s): 30381569 ICD Code: E78.5 - HYPERLIPIDEMIA, UNSPECIFIED Status: Chronic Priority: Medium Current Visit: Yes Problem Details: As above. Lipid panel good on 02/07/2020. Qualifiers: Hyperlipidemia type: mixed hyperlipidemia Qualified Code(s): E78.2 - Mixed hyperlipidemia (14) Diabetes mellitus SNOMED Code(s): 29876799 ICD Code: E11.9 - TYPE 2 DIABETES MELLITUS WITHOUT COMPLICATIONS Status: Chronic Priority: Medium Current Visit: Yes Problem Details: Glycosylated hemoglobin 6.5% on 02/07/2020 as above. 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 Otherwise medical management and treatment as above with overall good results. No complications during this hospitalization. - Patient Instructions Diet: Fluid Restriction Diet, Other: Heart healthy, 2000-calorie ADA, diverticulosis Fluid Restriction: 2000 mL Activity: As Tolerated Driving: Do Not Drive Showering/Bathing: May Shower Notify Provider of: Fever, Increased Pain, Nausea and/or Vomiting Other/Special Instructions: 1. Followup with your regular provider in 7 days as directed for reevaluation and recommended repeat CBC, comprehensive metabolic panel, magnesium level, CK, CK-MB, troponin I, and BNP. Bring these discharge instructions with you to that visit. 2. Update regular provider later today concerning this hospitalization and medication changes. 3. Immediately after this visit verify that your cellular telephone's voicemail has been activated and is empty. Also verify that your home telephone's answering machine is operating properly and has space to receive messages. Note that it is sometimes necessary for us to be able to contact you at a later date to discuss your medical care. 4. Please remember that we are ALWAYS here for you and want to answer any questions you may have. Feel free to call the hospital any time and we call you back JEREMY. - Discharge Plan *PRESCRIPTION DRUG MONITORING PROGRAM REVIEWED*: Not Applicable *COPY OF PRESCRIPTION DRUG MONITORING REPORT IN PATIENT COLLIN: Not Applicable Prescriptions/Med Rec: Potassium Chloride [Klor-Con M20] 20 meq PO BID #20 tab.er Furosemide [Lasix] 20 mg PO BID #30 tab Magnesium Oxide [Magnesium Oxide 400] 240 mg PO DAILY #20 powd.pack Home Medications: Home Meds LORazepam [Ativan] 0.5 mg PO BID@08,20 10/21/16 [History] Pantoprazole Sodium 40 mg PO DAILY 10/21/16 [History] Acetaminophen [Tylenol] 325 mg PO Q4HR PRN 02/06/20 [History] Albuterol Sulfate 2.5 mg IH Q4HR PRN 02/06/20 [History] Albuterol Sulfate [Albuterol Sulfate Hfa] 2 puff INH Q4HR PRN 02/06/20 [History] Albuterol/Ipratropium [Combivent Respimat] 1 puff IH QID 02/06/20 [History] Aspirin 325 mg PO DAILY 02/06/20 [History] Celecoxib 200 mg PO DAILY 02/06/20 [History] Fluticasone/Vilanterol [Breo Ellipta 200-25 MCG Inhalation Kit] 1 each IH DAILY 02/06/20 [History] Folic Acid 1 mg PO DAILY 02/06/20 [History] Hydrocortisone [Hydrocortisone 1% Crm] 1 applic TOP QID PRN 02/06/20 [History] Metoprolol Tartrate [Lopressor] 50 mg PO BID 02/06/20 [History] Mirtazapine [Remeron] 7.5 mg PO BEDTIME 02/06/20 [History] Mometasone Furoate [Asmanex Hfa] 1 puff IH BEDTIME 02/06/20 [History] Multivit,Calc,Mins/Iron/Folic [Thera-M] 1 each PO DAILY 02/06/20 [History] Nicotine [Nicotine Patch] 21 mg TD BEDTIME 02/06/20 [History] Rosuvastatin Calcium [Crestor] 40 mg PO DAILY 02/06/20 [History] Sennosides/Docusate Sodium [Senokot-S Tablet] 1 each PO BID 02/06/20 [History] Tiotropium [Spiriva HandiHaler] 18 mcg INH DAILY 02/06/20 [History] Warfarin [Coumadin] 2.5 mg PO MOWEFR@1400 02/06/20 [History] Warfarin [Coumadin] 5 mg PO SUTUTHSA@1400 02/06/20 [History] dilTIAZem HCL [Cardizem Cd] 240 mg PO DAILY 02/06/20 [History] diphenhydrAMINE HCL [Benadryl Allergy] 25 mg PO Q6HR PRN 02/06/20 [History] levETIRAcetam [Keppra] 250 mg PO Q12HR 02/06/20 [History] lisinopriL [Lisinopril] 20 mg PO DAILY 02/06/20 [History] ziprasidone HCL [Geodon] 40 mg PO DAILY 02/06/20 [History] Furosemide [Lasix] 20 mg PO BID #30 tab 02/07/20 [Rx] Magnesium Oxide [Magnesium Oxide 400] 240 mg PO DAILY #20 powd.pack 02/07/20 [Rx] Potassium Chloride [Klor-Con M20] 20 meq PO BID #20 tab.er 02/07/20 [Rx] Warfarin [Coumadin] 5 mg PO SuTuThSa@1800 tablet 02/07/20 [Rx] Oxygen Therapy Mode: Room Air Forms: ED Department Discharge Referrals: Jennifer Dee PA-C [Primary Care Provider] - - Discharge Summary/Plan Comment DC Time >30 min.: Yes (Coordination of care ) Discharge Summary/Plan Comment: As above. Extensive precautions were given to the patient and halfway staff, who are in agreement with the treatment plan. See Patient Instructions for further treatment and plan. - General Info Date of Service: 02/07/20 Admission Dx/Problem (Free Text: 1. Chest pain 2. CHF Subjective Update: Patient is a poor historian secondary to his psychiatric status and is sleeping this morning during rounds. Functional Status: Reports: Pain Controlled, Tolerating Diet. Denies: New Symptoms Numeric/FACES Score: 0 - Review of Systems General: Reports: Weakness (Stable by history) HEENT: Reports: No Symptoms Pulmonary: Reports: No Symptoms Cardiovascular: Reports: No Symptoms. Denies: Chest Pain Gastrointestinal: Reports: No Symptoms Genitourinary: Reports: No Symptoms Musculoskeletal: Reports: No Symptoms Skin: Reports: Bruising (Stable) Neurological: Reports: Confusion (Stable) Psychiatric: Reports: Confusion, Depression, Anxiety (As above), Agitation, Other (Paranoid schizophrenia). Denies: Cravings, Hallucinations - Patient Data Vitals - Most Recent: Last Vital Signs Temp 36.2 C 02/07/20 08:00 Pulse 75 02/07/20 08:00 Resp 24 H 02/07/20 08:00 BP 135/98 H 02/07/20 07:51 Pulse Ox 97 02/07/20 04:00 Vital Signs - 24 hr 02/06/20 02/06/20 02/06/20 11:30 11:45 12:45 Temperature [ 36.4 C Temporal] Pulse, Peripheral Pulse, 72 69 73 Peripheral [ Pulse Oximetry] Respiratory 17 17 15 Rate Blood Pressure Blood Pressure 136/90 [Left Upper Arm ] Blood Pressure 118/84 116/96 H [Right Upper Arm] O2 Sat by Pulse 96 96 97 Oximetry O2 Sat by Pulse Oximetry [Room Air] 02/06/20 02/06/20 02/06/20 13:04 14:00 15:39 Temperature [ 36.8 C 36.0 C L Temporal] Pulse, Peripheral Pulse, 75 62 Peripheral [ Pulse Oximetry] Respiratory 18 17 Rate Blood Pressure Blood Pressure [Left Upper Arm ] Blood Pressure 114/70 119/88 [Right Upper Arm] O2 Sat by Pulse 97 97 97 Oximetry O2 Sat by Pulse 97 Oximetry [Room Air] 02/06/20 02/06/20 02/07/20 17:34 20:00 04:00 Temperature [ 36.3 C 36.4 C Temporal] Pulse, 70 Peripheral Pulse, 68 95 Peripheral [ Pulse Oximetry] Respiratory 18 17 Rate Blood Pressure 128/72 Blood Pressure [Left Upper Arm ] Blood Pressure 119/76 147/97 H [Right Upper Arm] O2 Sat by Pulse 95 97 Oximetry O2 Sat by Pulse Oximetry [Room Air] 02/07/20 02/07/20 02/07/20 07:49 07:50 07:51 Temperature [ Temporal] Pulse, 107 H 107 H Peripheral Pulse, Peripheral [ Pulse Oximetry] Respiratory Rate Blood Pressure 135/98 H 135/98 H 135/98 H Blood Pressure [Left Upper Arm ] Blood Pressure [Right Upper Arm] O2 Sat by Pulse Oximetry O2 Sat by Pulse Oximetry [Room Air] 02/07/20 08:00 Temperature [ 36.2 C Temporal] Pulse, Peripheral Pulse, 75 Peripheral [ Pulse Oximetry] Respiratory 24 H Rate Blood Pressure Blood Pressure [Left Upper Arm ] Blood Pressure [Right Upper Arm] O2 Sat by Pulse Oximetry O2 Sat by Pulse Oximetry [Room Air] Weight - Most Recent: 81.284 kg I&O - Last 24 hours: Intake & Output 02/06/20 02/07/20 02/07/20 22:59 06:59 14:59 Intake Total 240 0 Output Total 600 450 Balance -360 -450 Imaging Impressions - Last 24 hrs: bus monitor shows stable atrial fibrillation with heart rate in the 70s to 80s with no ectopy or arrhythmia. Chest x-ray, portable, on 02/06/2020 shows evidence of mild to moderate cardiomegaly with mild prominence of the proximal aortic arch. Moderate COPD changes with probable pulmonary hypertension and/or mild centralized CHF. Multiple left-sided old lateral rib fractures also present with no pneumothorax, pulmonary infiltrates, etc. Mildly increased diffuse nonspecific bowel gaseous pattern by limited view. Lab Results - Last 24 hrs: Laboratory Results - last 24 hr 02/06/20 02/06/20 02/07/20 Range/Units 14:35 21:00 08:10 WBC 10.8 H (4.0-10.2) K/uL RBC 4.72 (4.33-5.41) M/uL Hgb 15.2 D (13.1-16.8) g/dL Hct 44.8 (39.0-49.0) % MCV 94.9 (84.0-98.0) fL MCH 32.2 (28.2-33.3) pg MCHC 33.9 (31.7-36.0) g/dL RDW 17.6 H (11.2-14.1) % Plt Count 267 (150-350) K/uL Neut % (Auto) 60.4 (45.0-80.0) % Lymph % (Auto) 20.1 (10.0-50.0) % [place] % (Auto) 12.8 (2.0-14.0) % Eos % (Auto) 6.1 H (0.0-5.0) % Baso % (Auto) 0.6 (0.0-2.0) % Neut # (Auto) 6.52 (1.40-7.00) K/uL Lymph # (Auto) 2.18 (0.50-3.50) K/uL [place] # (Auto) 1.39 H (0.00-1.00) K/uL Eos # (Auto) 0.66 H (0.00-0.50) K/uL Baso # (Auto) 0.07 (0.00-0.20) K/uL Sodium (136-145) mmol/L Potassium (3.5-5.1) mmol/L Chloride (98-107) mmol/L Carbon Dioxide (21.0-32.0) mmol/L BUN (7-18) mg/dL Creatinine (0.51-1.17) mg/dL Est Cr Clr Drug Dosing mL/min Estimated GFR (MDRD) mL/min Glucose (74-106) mg/dL Hemoglobin A1c (4.3-5.7) % Calcium (8.5-10.1) mg/dL Total Bilirubin (0.2-1.0) mg/dL AST (15-37) U/L ALT (12-78) U/L Alkaline Phosphatase (46-116) IU/L Creatine Kinase 36 38 (26-308) U/L Creatine Kinase Index 1.4 1.8 (0.0-2.5) % CK-MB (CK-2) 0.50 0.70 (0.00-3.60) ng/mL Troponin I 0.012 0.005 (0.000-0.056) ng/mL NT-Pro-B Natriuret Pep (0-125) pg/mL Total Protein (6.4-8.2) g/dL Albumin (3.4-5.0) g/dL Triglycerides (30-150) mg/dL Cholesterol (100-200) mg/dL LDL Cholesterol, Calc (0-100) mg/dL HDL Cholesterol (40-60) mg/dL 02/07/20 02/07/20 Range/Units 08:10 08:10 WBC (4.0-10.2) K/uL RBC (4.33-5.41) M/uL Hgb (13.1-16.8) g/dL Hct (39.0-49.0) % MCV (84.0-98.0) fL MCH (28.2-33.3) pg MCHC (31.7-36.0) g/dL RDW (11.2-14.1) % Plt Count (150-350) K/uL Neut % (Auto) (45.0-80.0) % Lymph % (Auto) (10.0-50.0) % [place] % (Auto) (2.0-14.0) % Eos % (Auto) (0.0-5.0) % Baso % (Auto) (0.0-2.0) % Neut # (Auto) (1.40-7.00) K/uL Lymph # (Auto) (0.50-3.50) K/uL [place] # (Auto) (0.00-1.00) K/uL Eos # (Auto) (0.00-0.50) K/uL Baso # (Auto) (0.00-0.20) K/uL Sodium 137 (136-145) mmol/L Potassium 3.9 (3.5-5.1) mmol/L Chloride 103 (98-107) mmol/L Carbon Dioxide 23.4 (21.0-32.0) mmol/L BUN 25 H (7-18) mg/dL Creatinine 0.77 (0.51-1.17) mg/dL Est Cr Clr Drug Dosing 98.70 mL/min Estimated GFR (MDRD) > 60 mL/min Glucose 176 H (74-106) mg/dL Hemoglobin A1c 6.5 H (4.3-5.7) % Calcium 9.4 (8.5-10.1) mg/dL Total Bilirubin 0.5 (0.2-1.0) mg/dL AST 53 H (15-37) U/L ALT 73 (12-78) U/L Alkaline Phosphatase 134 H (46-116) IU/L Creatine Kinase 53 (26-308) U/L Creatine Kinase Index 1.1 (0.0-2.5) % CK-MB (CK-2) 0.60 (0.00-3.60) ng/mL Troponin I 0.000 (0.000-0.056) ng/mL NT-Pro-B Natriuret Pep 167 H (0-125) pg/mL Total Protein 7.8 (6.4-8.2) g/dL Albumin 3.3 L (3.4-5.0) g/dL Triglycerides 55 (30-150) mg/dL Cholesterol 128 (100-200) mg/dL LDL Cholesterol, Calc 53 (0-100) mg/dL HDL Cholesterol 64 H (40-60) mg/dL MOHIT Results - Last 24 hrs: Microbiology 02/06/20 22:25 Stool Occult Blood (MOHIT) - Final Stool / Feces Med Orders - Current: Current Medications Acetaminophen (Tylenol) 650 mg PO Q4H PRN PRN Reason: Pain Albuterol (Ventolin Hfa) 0 gm INH Q4H PRN PRN Reason: Dyspnea Last Admin: 02/07/20 06:49 Dose: 2 puff Documented by: Albuterol/Ipratropium (Combivent Respimat) 0 gm INH QID [facility] Last Admin: 02/07/20 07:47 Dose: 1 inhalation Documented by: Aspirin (Aspirin) 325 mg PO DAILY [facility] Last Admin: 02/07/20 08:12 Dose: 325 mg Documented by: Diltiazem HCl (Cardizem Cd) 240 mg PO DAILY [facility] Last Admin: 02/07/20 07:49 Dose: 240 mg Documented by: Folic Acid (Folic Acid) 1 mg PO DAILY [facility] Last Admin: 02/07/20 07:49 Dose: 1 mg Documented by: Furosemide (Lasix) 40 mg IVPUSH Q8H [facility] Last Admin: 02/07/20 05:51 Dose: 40 mg Documented by: Levetiracetam (Keppra) 250 mg PO Q12HR [facility] Last Admin: 02/07/20 07:49 Dose: 250 mg Documented by: Lisinopril (Prinivil) 20 mg PO DAILY [facility] Last Admin: 02/07/20 07:50 Dose: 20 mg Documented by: Lorazepam (Ativan) 0.5 mg PO BID@ [facility] Last Admin: 02/07/20 07:51 Dose: 0.5 mg Documented by: Metoprolol Tartrate (Lopressor) 50 mg PO BID [facility] Last Admin: 02/07/20 07:51 Dose: 50 mg Documented by: Mirtazapine (Remeron) 7.5 mg PO BEDTIME [facility] Last Admin: 02/06/20 21:21 Dose: 7.5 mg Documented by: Mometasone Furoate (Asmanex Hfa 200mcg) 0 gm INH BEDTIME [facility] Last Admin: 02/06/20 21:22 Dose: 1 puff Documented by: Nicotine (Habitrol) 21 mg TOP BEDTIME [facility] Last Admin: 02/06/20 21:27 Dose: 21 mg Documented by: Fluticasone/Vilanterol 200 Mcg/25 Mcg *Pt Own Med* 0 each INH DAILY [facility] Last Admin: 02/07/20 08:02 Dose: 1 each Documented by: Non-Formulary Medication (Ziprasidone Hcl) 0 mg PO DAILY [facility] Last Admin: 02/07/20 07:47 Dose: 40 mg Documented by: Pantoprazole Sodium (Protonix Iv) 40 mg IVPUSH Q12H [facility] Last Admin: 02/07/20 05:51 Dose: 40 mg Documented by: Potassium Chloride (Klor-Con M20) 20 meq PO TID [facility] Last Admin: 02/07/20 07:48 Dose: 20 meq Documented by: Rosuvastatin Calcium (Crestor) 40 mg PO DAILY [facility] Last Admin: 02/07/20 07:50 Dose: 40 mg Documented by: Senna/Docusate Sodium (Senna Plus) 1 tab PO BID [facility] Last Admin: 02/07/20 07:50 Dose: 1 tab Documented by: Sodium Chloride (Saline Flush) 10 ml FLUSH ASDIRECTED PRN PRN Reason: Keep Vein Open Last Admin: 02/07/20 05:52 Dose: 10 ml Documented by: Sodium Chloride (Saline Flush) 10 ml FLUSH Q12HR PRN PRN Reason: Keep Vein Open Last Admin: 02/07/20 07:48 Dose: 10 ml Documented by: Tiotropium [place] (Spiriva Handihaler) 18 mcg INH DAILY [facility] Last Admin: 02/07/20 08:03 Dose: Not Given Documented by: Warfarin Sodium (Coumadin) 2.5 mg PO MoWeFr@1800 [facility] Last Admin: 02/06/20 17:33 Dose: 2.5 mg Documented by: Warfarin Sodium (Coumadin) 5 mg PO SuTuThSa@1800 [facility] Discontinued Medications Famotidine (Pepcid) 40 mg IVPUSH ONETIME ONE Stop: 02/06/20 09:20 Last Admin: 02/06/20 09:25 Dose: 40 mg Documented by: Ibuprofen (Motrin) 600 mg PO ONETIME ONE Stop: 02/07/20 00:06 Last Admin: 02/07/20 01:08 Dose: 600 mg Documented by: Lorazepam (Ativan) 0.5 mg PO ONETIME ONE Stop: 02/07/20 00:03 Last Admin: 02/07/20 01:08 Dose: 0.5 mg Documented by: Temazepam (Restoril) 15 mg PO BEDTIME PRN PRN Reason: Insomnia - Exam Quality Assessment: Reports: DVT Prophylaxis. Denies: Supplemental Oxygen, Central Line/PICC, Urine Catheter, Skin Breakdown, Restraints General: Reports: Alert, No Acute Distress. Denies: Oriented, Cooperative HEENT: Reports: Pupils Equal, Pupils Reactive, EOMI, Mucous Membr. Moist/[place] Neck: Reports: Supple, Trachea Midline, No JVD, No Thyromegaly, +2 Carotid Pulse wo Bruit Lungs: Reports: Clear to Auscultation, Normal Respiratory Effort Cardiovascular: Reports: Regular Rate, No Murmurs, Irregular Rhythm. Denies: Gallops, Rubs GI/Abdominal Exam: Normal Bowel Sounds, Soft, Non-Tender, No Organomegaly, No Distention, No Abnormal Bruit, No Mass, Other (Obese). No: Guarding (Male) Exam: Deferred Rectal (Males) Exam: Deferred (None) Back Exam: Reports: Normal Inspection, Full Range of Motion. Denies: CVA Tenderness (L), CVA Tenderness (R), Muscle Spasm Extremities: Normal Inspection, Normal Range of Motion, Non-Tender, No Pedal Edema, Normal Capillary Refill. No: [place]'s Sign Skin: Reports: Ecchymosis (Occasional) Neurological: Reports: No New Focal Deficit, Other (Stable mild left hemiparesis) Psy/Mental Status: Reports: Anxious (Moderate), Depressed (Moderate), Agitated (Occasional), Other (Sleeping). Denies: Hallucinations, Withdrawal Symptoms EKG INTERPRETATION EKG Date: 02/07/20 Time: 08:37 Rhythm: A-Fib Rate (Beats/Min): 104 [place]: Normal (Neutral) P-Wave: Variable QRS: Normal (0.08 seconds representing repolarization changes) ST-T: Other (Diffuse nonspecific ST changes with no significant ischemia) DC/PQ Interval: Variable. Poor R wave progression in the anterior leads. Comparison: Change From Previous EKG (New nonspecific ST changes and borderline tachycardia since last EKG on 02/06/2020) EKG Interpretation Comments: 1. No acute ischemic changes 2. Atrial fibrillation with mild tachycardia
[2020-02-07] MEDS ORDERED: Magnesium Oxide 400 MG Tab PO ONE (10:52)
--- NOTE | 2020-02-07 11:33 | PCM.SN.2 ---
- Free Text/Narrative Note: Note Hemoccult positive stool during recent hospitalization with no evidence of acute GI bleed. IV Protonix given during that hospitalization. Further work-up depending on his clinical course and/or per his regular providers
[2020-02-07] MEDS ORDERED: Warfarin 5 MG Tab PO SCH ×2 (14:00→18:00)
[2020-02-07 15:06] VITALS: BP 142/56; PULSE 74
== END 2020-02-07 14:00 ==
LOC: LL.ED 09:10 → LL.MS 12:50 → UNDOADMOB 12:50 → LL.MS 13:05
PROVIDERS: ADMIT Family Medicine; ATTEND Family Medicine
DX: R07.9 Chest pain, unspecified (principal); I48.91 Unspecified atrial fibrillation; I11.0 Hypertensive heart disease with heart failure; I50.9 Heart failure, unspecified; E78.00 Pure hypercholesterolemia, unspecified; I27.20 Pulmonary hypertension, unspecified; J44.9 Chronic obstructive pulmonary disease, unspecified; K21.9 Gastro-esophageal reflux disease without esophagitis; I25.2 Old myocardial infarction; E11.9 Type 2 diabetes mellitus without complications; F41.8 Other specified anxiety disorders; D64.9 Anemia, unspecified; E88.09 Other disorders of plasma-protein metabolism, not elsewhere classified; E83.51 Hypocalcemia; E83.42 Hypomagnesemia; Z88.8 Allergy status to other drugs, medicaments and biological substances; Z79.899 Other long term (current) drug therapy; Z79.82 Long term (current) use of aspirin; Z79.01 Long term (current) use of anticoagulants; Z86.73 Personal history of transient ischemic attack (TIA), and cerebral infarction without residual deficits; Z98.890 Other specified postprocedural states; Z90.49 Acquired absence of other specified parts of digestive tract
CPT/HCPCS: 36415; 71045; 80053; 80061; 82272; 82550; 82553; 83036; 83605; 83735; 83880; 84443; 84484; 84550; 85025; 85379; 85610; 85730; 87338; 93005; 94640; 96374; 96375; 96376; 99217; 99219; 99285; A9270; C9113; G0378; J1940; J3490